=== PATIENT | male | born 1995 ===

== ENCOUNTER 2019-10-22 11:56 | Emergency (ER) | payer SELFPAY ==
[2019-10-22 12:24] VITALS: BP 132/78; PULSE 79; RESP 16; TEMP 36.7; O2SAT 99; BMI 22.1
--- NOTE | 2019-10-22 13:00 | ED_ITS ---
HPI - Headache General: Chief Complaint: Headache Stated Complaint: headache Time Seen by Provider: 10/22/19 13:00 Source: patient Mode of arrival: ambulatory Limitations: no limitations History of Present Illness: HPI Narrative: Patient is a 24-year-old male who presents to ED today with complaints of a left-sided headache over the past 2 weeks; patient states he had a similar headache previously and was diagnosed with a sinus infection; he was subsequently treated with antibiotics that seem to alleviate his pain; patient states pain seems to radiate into his ear and down into his left upper teeth; he denies lightheadedness, dizziness, decreased coordination, memory impairment, numbness/tingling/weakness to extremities, visual changes, facial swelling MD elicited complaint: headache Onset (ago): day(s) Onset description: gradually Location: left and temporal Severity: mild Relieving factors: other (extra strength dayquill) Associated symptoms: Reports no associated symptoms; Deny fever(s) Review of Systems Const: Denies: fever, chills, body aches or fatigue Eyes: Denies: change in vision, blurry vision, photophobia, eye discomfort or eye discharge ENMT: Reports: nasal congestion and facial/sinus pain; Denies: throat pain, enlarged tonsils, painful swallowing, swelling of lips/t ongue, oral sores/lesions, ear pain, ear discharge, nasal discharge or post nasal drip Resp: Denies: productive cough or non-productive cough Neuro: Reports: headache All/Imm: Denies: facial swelling or seasonal allergies PFSH ED PFSH: Statuses (acute, chronic, etc) shown below reflect problem list status as previously entered and may not be historically accurate Social History Smoking and tobacco status: current every day smoker Physical Exam Const: COMMON NORMALS: no apparent distress, oriented x3, alert and well nourished HENMT: COMMON NORMALS: normocephalic, head/scalp atraumatic, external ears normal, EAC's normal and external nose normal HEAD & SCALP: normocephalic and atraumatic FACE & SINUS: sinus tenderness (L maxillary) NOSE: external nose normal EXTERNAL EAR: Yes external ears normal EXTERNAL AUDITORY CANAL: EAC's normal MOUTH: oral and palatal mucosa normal TEETH & GINGIVA: Yes other (dental decay L upper; 2-3 molar) THROAT: posterior oropharynx normal Eye: COMMON NORMALS: PERRL and EOMs intact bilaterally PUPIL: Yes PERRL Neck/C-Spine: COMMON NORMALS: full ROM, no lymphadenopathy and supple Neuro: COMMON NORMALS: oriented x3 SENSORIUM/ORIENTATION: Yes alert Skin: COMMON NORMALS: no rashes or lesions noted GENERAL SKIN EXAM: no rashes or lesions noted Course Vital Signs: Vital signs: Vital Signs Temperature 98.0 F 10/22/19 12:24 Pulse Rate 79 10/22/19 12:24 Respiratory Rate 16 10/22/19 12:24 Blood Pressure 132/78 10/22/19 12:24 Pulse Oximetry 99 10/22/19 12:24 Discharge Plan Discharge Patient Disposition: Home, Self-Care Clinical Impression: Sinusitis, Dental caries Condition: Stable Prescriptions: New amoxicillin-pot clavulanate [Augmentin] 875-125 mg tablet 1 tab PO Q12H 7 Days Qty: 14 RF: 0 No Action No Known Home Medications RF: 0 Patient Instructions: Sinusitis - Acute, Dental Caries (Cavities), Dental Caries (ED) Activity Restrictions/Additional Instructions: Follow up with a dentist. Coding Level of Care Code ED Pattern Drafter for Debbie Parada
[2019-10-22 14:04] VITALS: BP 131/72; PULSE 74; RESP 16; O2SAT 99
== END 2019-10-22 14:05 | disposition home or self-care (01) ==
LOC: ER 14:02
PROVIDERS: Emergency Provider Physician Assistant
DX: J32.9 Chronic sinusitis, unspecified (principal); K02.9 Dental caries, unspecified; F17.210 Nicotine dependence, cigarettes, uncomplicated
CPT/HCPCS: 99281